=== PATIENT | female | born 1950 | race Caucasian/White ===

== ENCOUNTER 2016-07-23 02:22 | Inpatient (IN) | payer OTHER, MEDICARE ==
[~2016-07-23] VITALS: Ht 157.5 cm; Wt 60.0 kg
[~2016-07-23 02:22] MED LIST: ANAS1 PO; LORA-392 PO; SERT100 PO; TAB-TAB PO
[2016-07-23 02:45] VITALS: BP 145/74; PULSE 97; RESP 16; TEMP 98.6; O2SAT 96
[2016-07-23 03:18] LABS: AUTOMATED NEUTROPHIL # 2.1 TH/MM3 (1.8-7.7); BASOPHIL # 0.1 TH/MM3 (0-0.2); BASOPHIL % 1.3 % (0.0-2.0); EOSINOPHIL # 0.2 TH/MM3 (0-0.4); EOSINOPHIL % 5.5 % (0.0-4.0); HEMO FLAGS DIFF FINAL; LYMPH % 25.5 % (9.0-44.0); MEAN CELL VOLUME 92.7 FL (80.0-100.0); MEAN CORPUSCULAR HGB CONC 33.5 % (32.0-36.0); MONO % 11.8 % (0.0-8.0); NEUT % 55.9 % (16.0-70.0); PLATELET COUNT 254 TH/MM3 (150-450); RED BLOOD COUNT 3.99 MIL/MM3 (4.00-5.30); RED CELL DISTRIBUTION WIDTH 13.7 % (11.6-17.2); WHITE BLOOD COUNT 3.8 TH/MM3 (4.0-11.0)
[2016-07-23 03:33] LABS: AMPHETAMINE, URINE NEG (NEG); BARBITURATES, URINE NEG (NEG); COCAINE, URINE NEG (NEG)
[2016-07-23 03:37] LABS: BACTERIA, URINE RARE /hpf; BICARBONATE 29.3 MEQ/L (21.0-32.0); BLOOD, URINE SMALL (NEG); COMMENT (UR) CULT NOT INDICATED; CULTURE IF INDICATED CULT NOT INDICATED; GLUCOSE,URINE NEG (NEG); KETONE, URINE NEG (NEG); NITRITE,URINE NEG (NEG); PH, URINE 5.5 (5.0-8.5); POTASSIUM 3.6 MEQ/L (3.5-5.1); SQUAMOUS EPITHELIAL CELL URINE 1 /hpf (0-5); URINE COLOR COLORLESS (YELLW/STRAW)
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
[2016-07-23 08:36] VITALS: BP 136/78; PULSE 88; RESP 16; O2SAT 97
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
[2016-07-23 18:00] VITALS: BP 153/67; PULSE 72; RESP 18
[2016-07-23] MEDS ORDERED: ALUMINUM/MAGNESIUM/SIMETH 30 ML CUP PO PRN (18:45)
[2016-07-23] MEDS ORDERED: MAGNESIUM HYDROXIDE SUSP 30 ML CUP PO PRN (18:45)
[2016-07-23 22:59] VITALS: BP 154/68; PULSE 76; RESP 17; TEMP 97.9; O2SAT 97
[2016-07-24 04:47] VITALS: BP 121/58; PULSE 65; RESP 16; TEMP 97.6; O2SAT 97
[2016-07-24 08:58] LABS: ANION GAP 8 MEQ/L (5-15); BICARBONATE 31.6 MEQ/L (21.0-32.0); BLOOD UREA NITROGEN 10 MG/DL (7-18); CHLORIDE 100 MEQ/L (98-107); GLOMERULAR FILTRATION RATE 83 ML/MIN (>89); HDL CHOLESTEROL 54.2 MG/DL (40.0-60.0); LDL CHOLESTEROL 118 MG/DL (0-99); POTASSIUM 3.4 MEQ/L (3.5-5.1); SODIUM (NA) 140 MEQ/L (136-145)
[2016-07-24] MEDS: ACETAMINOPHEN 325 MG TAB PO PRN (09:17)
[2016-07-24 13:48] LABS: HEMOGLOBIN A1a 0.9 %; HEMOGLOBIN A1b 0.9 %; HEMOGLOBIN Ao 86.3 %; HEMOGLOBIN F 0.9 %; HEMOGLOBIN LA1C 1.9 %; HEMOGLOBIN P3 3.3 %
[2016-07-24 16:35] VITALS: BP 165/71; PULSE 77; RESP 16; TEMP 97.2; O2SAT 98
[2016-07-25 05:52] VITALS: BP 110/57; PULSE 65; RESP 16; TEMP 96.7; O2SAT 96
[2016-07-25] MEDS ORDERED: PNEUMOCOCCAL POLYVALENT INJ 25 MCG/0.5 ML SYR IM ONE (10:00)
[2016-07-25] MEDS ORDERED: INFLUENZA VIRUS VACCINE (QUADRIVALENT) 0.5 ML SYR IM ONE (10:00)
[2016-07-25] MEDS: ACETAMINOPHEN 325 MG TAB PO PRN ×2 (12:03→12:26)
[2016-07-25] MEDS ORDERED: HALOPERIDOL LACTATE 5 MG/ML AMP IM PRN (13:45)
[2016-07-25] MEDS ORDERED: LORazepam 2 MG/ML VIAL IV PUSH PRN ×4 (13:45)
[2016-07-25] MEDS ORDERED: LORazepam 2 MG TAB PO PRN (13:45)
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
[2016-07-25] MEDS ORDERED: PILL SPLITTER OTHER PRN (14:00)
[2016-07-25] MEDS ORDERED: FLUMAZENIL 0.5 MG/5 ML VIAL IV PUSH PRN (14:00)
[2016-07-25] MEDS ORDERED: LORazepam 1 MG TAB PO PRN (15:00)
[2016-07-25] MEDS: LORazepam 1 MG TAB PO PRN (16:08)
[2016-07-25 20:27] VITALS: BP 134/101; PULSE 80; RESP 16; TEMP 97.4; O2SAT 96
[2016-07-26 05:33] VITALS: BP 121/71; PULSE 58; RESP 16; TEMP 97.4; O2SAT 98
[2016-07-26] MEDS: LORazepam 1 MG TAB PO PRN (08:45)
[2016-07-26] MEDS: ACETAMINOPHEN 325 MG TAB PO PRN ×2 (08:45→21:33)
--- NOTE | 2016-07-26 08:50 | HHI.PYPN ---
Subjective Remarks Patient was seen today for psychiatric reevaluation, she was found sleeping in her room, easily arousable, calm and cooperative. Patient reports feeling much better today, still have been frequent intrusive thoughts about guiltiness and about his past actions. Patient says that she has been giving a lot of thoughts to how her life has become so conflictive and difficult. Patient says that she understands that alcohol has been controlling her and taking her in the wrong direction. She continues to be sad, depression is 4/10, it was 2/10 and she came to the hospital. Patient is fully oriented 3, no attention deficit. She has been interactive and easy to deal with in the unit. Compliant with medications, no side effects reported. Review of Systems Other No somatic complaints Objective Alert: Yes [place]: Person (ox4), Place, Date Mood: Anxious, Depressed Affect: Tearful Memory Intact: Comment (not impaired) Hallucinations: Other (negative) Delusions: No Delusion Type: Other Suicidal: Ideation (deneis any) Homicidal: Ideation (deneis any) Insight/Judgment Poor Vitals/IOs Vital Signs Date Time Temp Pulse Resp B/P Pulse Ox O2 Delivery O2 Flow Rate FiO2 07/26/16 05:33 97.4 58 16 121/71 98 07/23/16 18:00 Room Air Assessment & Plan Problem List: (1) Alcohol dependence with alcohol-induced mood disorder Assessment & Plan: No withdrawal symptoms observed. Continue CIWA. Patient continues to show depressive symptoms, will increase Zoloft to 50 mg daily. Brief supportive psychotherapy provided. ICD Code: F10.24 Assessment & Plan Estimated LOS: days Justification for Cont. Inpt. Patient continues to be objectively and subjectively depressed, ambivalent about suicidality, she poses a very high risk of danger to self out of an structure environment Sridhar Oh MD July 26, 2016 08:50
[2016-07-26] MEDS ORDERED: SERTRALINE HCL 50 MG TAB PO SCH (09:00)
[2016-07-26] MEDS: SERTRALINE HCL 50 MG TAB PO SCH (09:00)
[2016-07-26 21:41] VITALS: BP 145/52; PULSE 65; RESP 16; TEMP 98; O2SAT 96
[2016-07-27 05:34] VITALS: BP 112/53; PULSE 76; RESP 16; TEMP 97.6; O2SAT 98
[2016-07-27] MEDS ORDERED: NALT50TA3 PO (08:27)
[2016-07-27] MEDS ORDERED: ZOLO50TA PO (08:27)
[2016-07-27] MEDS: SERTRALINE HCL 50 MG TAB PO SCH (08:55)
[2016-07-27] MEDS: ACETAMINOPHEN 325 MG TAB PO PRN (10:17)
[2016-07-27] MEDS ORDERED: PNEUMOCOCCAL POLYVALENT INJ 25 MCG/0.5 ML SYR IM ONE (11:15)
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
== END 2016-07-27 13:25 | disposition home or self-care (01) | DRG 882 ==
LOC: NEPE 02:22 → NEDA 18:43 → H260 19:56
PROVIDERS: ADMIT Psychiatry & Neurology Psychiatry; ATTEND Psychiatry & Neurology Psychiatry
DX: F43.20 Adjustment disorder, unspecified (principal); F10.24 Alcohol dependence with alcohol-induced mood disorder; Y90.6 Blood alcohol level of 120-199 mg/100 ml; Z23 Encounter for immunization
CPT/HCPCS: 80048; 80061; 80307; 81001; 83036; 85025; 90732; 99284